=== PATIENT | male | born 1945 | race Caucasian/White ===

== ENCOUNTER 2016-06-20 16:38 | Observation (INO) | payer MEDICARE ==
--- NOTE | 2016-06-20 16:52 | ERNOTE ---
GI Bleeding/Rectal Pain ER Date of Service: 06/20/16 Presenting Symptoms: rectal bleeding Source: patient Exam Limitations: no limitations Allergies/Adverse Reactions: Allergies iodine Allergy (Verified 06/20/16 17:10) Home Medications: HOME MEDICATIONS Aspirin [Aspirin Chewable] 81 mg PO DAILY 06/20/16 [Last Taken Unknown] Lisinopril [Zestril] 20 mg PO DAILY 06/20/16 [Last Taken Unknown] Omeprazole 40 mg PO DAILY 06/20/16 [Last Taken Unknown] metFORMIN HCL [Glucophage] 1,000 mg PO BIDWM 06/20/16 [Last Taken Unknown] Narrative: Pt. comes in with c/o cramping and bloody stools x 4 today since 1pm. Pt. denies any recent illness but does note that he has been taking laxatives and stool softeners for constipation recently. Pt. denies any SOB, CP, nausea, vomiting, fever, but does state that he has been slightly dizzy. Pt. denies any alleviating or aggravating factors, denies any abdominal history, and denies any blood thinner medications. Review of Systems - Review of Systems Constitutional: Present: no symptoms reported. Absent: fever, chills, weakness , fatigue, malaise EYE: Present: no symptoms reported ENT: Present: no symptoms reported Respiratory: Present: no symptoms reported. Absent: shortness of breath, cough , wheezing Cardiology: Present: no symptoms reported. Absent: chest pain, palpitations, edema Gastrointestinal/Abdominal: Present: diarrhea - bloody. Absent: nausea, vomiting, constipation, abdominal pain Genitourinary: Present: no symptoms reported Musculoskeletal: Present: no symptoms reported. Absent: back pain, joint pain Skin: Present: no symptoms reported Neurological: Present: no symptoms reported. Absent: headache, dizziness/light- headedness, numbness, tingling All Other Systems: All systems neg except as marked Physical Exam - Physical Exam General Appearance: Present: wd/wn, alert, no apparent distress Eye Exam: Normal inspection: bilateral, PERRL: bilateral, EOMI: bilateral Ears, Nose, Throat: Present: normal ENT inspection, normal pharynx Neck: Present: normal inspection, nontender. Absent: lymphadenopathy (R), lymphadenopathy (L) Respiratory: Present: no respiratory distress, normal breath sounds, no accessory muscle use, chest nontender, lungs clear Cardiovascular/Chest: Present: no murmur, normal peripheral pulses, tachycardia Gastrointestinal/Abdominal: Present: normal bowel sounds, nondistended, soft, no organomegaly, tenderness - LLQ Rectal Exam: Present: normal rectal tone, normal prostate, blood-streaked stool , tenderness. Absent: hemorrhoids Back Exam: Present: normal inspection, normal range of motion, no CVA tenderness , no vertebral tenderness Extremity Exam: Present: normal inspection Neurological Exam: Present: alert, oriented, normal mood/affect, no motor/ sensory deficits Skin Exam: Present: warm/dry, pallor ED Progress - Date and Time Seen: Date and Time: 06/20/16 22:12 Discussed case with jt and chang pt. hgb stable and GI bleeding slowing down will admit for observation and non emergent colonoscopy. - Results and Orders Patient's Lab Results:: I have reviewed the patient's lab results. - Vital Signs Patient's Vital Signs:: I have reviewed the patient's vital signs. Vital Signs: Vital Signs 06/20/16 16:48 Temperature 36.2 C L Pulse Rate 139 H Respiratory 18 Rate Blood Pressure 155/86 O2 Sat by Pulse 98 Oximetry - EKG EKG: nonspecific ST T wave changes, other - Sinus tach EKG read: Reviewed by me EKG Comments: Interpreted by Dr Us - X-Ray X-Ray #1 X-Ray: abdomen Interpretation: Interp. by me X-ray Comments: Air fluid levels and prominent bowels RLQ stool retention L abd - CT/Ultrasound CT/Ultrasound Narrative: CT abdomen with B adrenal adenomas, no acute process - Progress/Reassessment Chief Complaint: GI Bleed Departure Clinical Impression: GI bleed Qualifiers: GI bleed type/associated pathology: unspecified gastrointestinal hemorrhage type Qualified Code(s): K92.2 - Gastrointestinal hemorrhage, unspecified - Departure Disposition: [facility] Condition: Fair Referrals: Gerald Major DO [Primary Care Provider] -
[2016-06-20 17:15] LABS: Hematocrit 40.8 % (42.0-52.0); Hemoglobin 13.8 gm/dL (13.5-18.0); Mean Cell Volume 92.7 fl (78-100); Mean Corpuscular Hemoglobin 31.4 pg (27-31); Mean Corpuscular Hgb Conc 33.8 g/dl (32-36); Mean Platelet Volume 9.9 fl (6.0-9.5); Neutrophil # 9.6 K/mm3 (1.3-6.0); Neutrophil % 71.1 % (42-75.0); Platelet Count 280 K/mm3 (150-450); Red Cell Distribution Width 12.3 % (11.5-14.0); White Blood Count 13.5 K/mm3 (4.0-10.5)
[2016-06-20] MEDS ORDERED: NORMAL SALINE 1,000 ML IV ONE ×2 (17:20→21:26)
[2016-06-20 17:30] LABS: Prothrombin Time (Patient) 10.1 Seconds (9.4-11.4)
[2016-06-20 17:31] LABS: INR 0.97 INR (0.90-1.10); Partial Thrombolplastin Time 27.1 Seconds (24-32)
[2016-06-20 17:32] LABS: Albumin * 3.4 gm/dl (3.4-5.0); Anion Gap 16.7 mmol/L (6.8-13.8); BUN/Creatinine Ratio 15.3 (9.0-21.6); Bilirubin, Total 0.3 mg/dL (0.0-1.1); Ca. Corrected For Albumin 9.2 mg/dL (8.4-10.2); Carbon Dioxide 25.4 mmol/L (24-32.6); Potassium 4.1 mmol/L (3.4-4.6); Total Protein 6.8 gm/dL (6.2-8.2)
--- OUTSIDE RECORDS SUMMARY | 2016-06-20 17:40 | XMS REPORT | Continuity of Care Document ---
:1945 Author Organization [facility] ([facility]) Address [place] [address] Phone [phone] Care Team Providers Name Role Phone Wiley Gunter Primary Care Provider [phone] Source Comments This disclosure is being made pursuant to the Care Everywhere program, applicable federal and state laws, and may not contain all informaitonavailable regarding this patient.[facility] ([facility]) Active Allergies and Adverse Reactions Allergen Noted Date Severity Reactions Comments Iodine 09/04/2010 NO REACTION Current Medications Prescription Sig. Disp. Refills Start Date End Date Status lisinopril 20 mg tablet Take 20 mg by Active mouth daily. omeprazole 20 mg extended Take 20 mg by Active release capsule mouth daily. aspirin 81 mg tablet Take 81 mg by Active mouth daily. Active Problems Not on file Social History Tobacco Use Types Packs/Day Years Used Date Current Some Day Smoker Smokeless Tobacco: Current User Chew Last Filed Vital Signs Vital Sign Reading Time Taken Blood Pressure 141/78 09/04/2010 8:14 AM CDT Pulse 61 09/04/2010 8:14 AM CDT Temperature 35.5 C (95.9 F) 09/04/2010 8:14 AM CDT Respiratory Rate - - Height 1.753 m (5' 9") 09/04/2010 8:14 AM CDT Weight 86.6 kg (190 lb 14.7 oz) 09/04/2010 8:14 AM CDT Body Mass Index 28.18 09/04/2010 8:14 AM CDT Oxygen Saturation - - Plan of Care Health Maintenance Due Date Last Done Comments HCV Screening 1945 Hepatitis B Vaccine (1 of 3 - Primary Series) 1945 Tdap Vaccine 11/29/1955 Lipid Disorder Screening 1962 Td Vaccine 1962 Colonoscopy 1994 Prostate Cancer Screening 1994 Zoster Vaccine 2004 Pneumococcal Vaccine (1 of 2 - PCV13) 2009 Influenza Vaccine: Seasonal (#1) 09/10/2015 Results from Last 3 Months Not on file
[2016-06-20] MEDS ORDERED: DIATRIZOATE MEGLU/DIATRIZO SOD 30 ML BTL PO ONE (18:08)
[2016-06-20 18:12] LABS: Urine Bilirubin Negative (NEGATIVE); Urine Ketone 5 mg/dL (NEGATIVE); Urine Nitrite Negative (NEGATIVE); Urine Protein 15 mg/dL (NEGATIVE); Urine Specific Gravity 1.025 SP.GR. (1.005-1.030); Urine Urobilinogen Normal (NORMAL)
[2016-06-20 18:26] LABS: Urine Blood 10 /ul (NEGATIVE)
[2016-06-20 18:27] LABS: Urine Appearance Clear; Urine Bacteria None Seen; Urine Color Yellow; Urine Hyaline Cast TRACE /LPF; Urine RBC TRACE /hpf (0-5); Urine WBC None Seen /hpf (0-5)
[2016-06-20] MEDS ORDERED: DIATRIZOATE MEGLU/DIATRIZO SOD 30 ML BTL ONE (18:52)
[2016-06-20 18:55] LABS: Hematocrit 35.3 % (42.0-52.0); Hemoglobin 12.1 gm/dL (13.5-18.0)
[2016-06-20 21:38] LABS: Hemoglobin 12.7 gm/dL (13.5-18.0)
--- OUTSIDE RECORDS SUMMARY | 2016-06-20 22:17 | XMS REPORT | Continuity of Care Document ---
:1945 Author Organization [facility] ([facility]) Address [place] [address] Phone [phone] Care Team Providers Name Role Phone Wiley Gunter Primary Care Provider [phone] Source Comments This disclosure is being made pursuant to the Care Everywhere program, applicable federal and state laws, and may not contain all informaitonavailable regarding this patient.[facility] ([facility]) Active Allergies and Adverse Reactions Allergen [...]
[2016-06-20] MEDS ORDERED: NORMAL SALINE 1,000 ML IV PRN (23:43)
--- NOTE | 2016-06-20 23:55 | HP ---
Chief Complaint - Chief Complaint Date of Service: 06/20/16 Time of Service: 23:40 Chief Complaint: bloody stool History of Present Illness: Pt is a 70 year old male pt of Dr. Major who presented to the ER with complaints of bright red bloody stool per rectum. Per pt from 3pm-7pm he had 6 bright red blood BM. PMH includes: GERD, HLD, HTN, and DM. Denies any dizziness , lightheadedness, CP, or SOB. No other associated symptoms are endorsed. He states that during the week last week he had abdominal pain and was constipated so took stool softeners on Thursday (06/18/16), on (06/19/16) and this morning he took a laxative. He states his last colonoscopy was in 1991 which did not reveal any abnormalities. Does take ASA 81mg PO daily,no other anticoagulants. In the ER his initial H/H was 13.8/40.8. Q2H checks were as followed: 12.1/35.3, 12.7/37. While in the ER he had one syncopal episode while up to the bathroom, BP was 52/29 which quickly resolved to SBP 130's. Pt received a total of 2L NS in ER. BP and H/H have remained stable. CT scan of abdomen revealed incidental findings of bilateral inguinal hernias, adrenal adenomas, and renal cyst, abdominal xray showed no acute abnormalities. Laboratory findings were as followed: WBC 13.5, Na+141, K+4.1, anion gap 16.7, INR 0.97, BUN/Creat 20/1.31. He will be admitted to the floor for observation, monitoring, and further testing with possible bleeding scan tomorrow depending on how he does overnight. - Patient's Past Medical History Patient History - Medical: Diabetes Type 2, GERD, Other Patient History - Cardiac/Respiratory: Hypertension, Hyperlipidemia Patient History - Cancer: No Hx of Cancer Patient History - Surgical Procedures: No surgical history, Colonoscopy - 1993 Patient History - Other: None - Family History Father Family History - Medical: History Unknown Family History - Cardiac/Respiratory: History Unknown Family History - Cancer: Lung Mother Family History - Medical: Family History - Cardiac/Respiratory: Coronary Heart Disease Family History - Cancer: No pertinent family hx Brother Family History - Medical: Diabetes Type 2 Sister Family History - Medical: Diabetes Type 2 - Social History Living Situations: alone Abuse History: No History of abuse Psych History: No pertinent hx Smoking Status: Current some day smoker Have you smoked in the past 12 months: Yes Do you dip or chew tobacco: No Patient requests Smoking Cessation Consult: No Initiate information on Smoking Cessation: No Alcohol Use: occasionally Drug Use: none - Immunizations Immunizations Up to Date: Yes Hx Pneumococcal Vaccination: Yes History of Influenza Vaccine: Yes Review Of Systems (GEN) - Review of Systems Generalized/Overall Review: Present: No Symptoms Reported EENTM: Present: No Symptoms Reported Respiratory: Present: No Symptoms Reported Cardiac: Present: No Symptoms Reported Abdominal: Present: Abdominal Pain, Diarrhea, Bright blood from rectum Genitourinary: Present: No Symptoms Reported Musculoskeletal: Present: No Symptoms Reported Neurological: Present: No Symptoms Reported Skin: Present: No Symptoms Reported Endocrine: Present: No Symptoms Reported Allergies/Adverse Reactions: Allergies Allergy/AdvReac Type Severity Reaction Status Date / Time iodine Allergy Verified 06/20/16 17:10 Home Medications: HOME MEDICATIONS Aspirin [Aspirin Chewable] 81 mg PO DAILY 06/20/16 [Last Taken Unknown] Lisinopril [Zestril] 20 mg PO DAILY 06/20/16 [Last Taken Unknown] Omeprazole 40 mg PO DAILY 06/20/16 [Last Taken Unknown] metFORMIN HCL [Glucophage] 1,000 mg PO BIDWM 06/20/16 [Last Taken Unknown] Exam - Exam Vital Signs: Vital Signs - Last Taken Temp 36.5 C 06/20/16 23:11 Pulse 91 06/20/16 23:11 Resp 16 06/20/16 23:11 BP 108/65 06/20/16 23:11 Pulse Ox 96 06/20/16 23:11 Constitutional: Present: Alert, Oriented x3, Cooperative, No distress ENT Exam: Present: normal ENT inspection Eye Exam: bilateral eye: normal inspection, PERRL Respiratory: Present: chest non-tender, lungs clear, normal breath sounds, no respiratory distress, no accessory muscle use Cardiovascular/Chest: Present: normal peripheral pulses, regular rate, rhythm, no chest tenderness, no edema, no gallop, no JVD, no murmur Peripheral Pulses: dorsalis-pedis (R): 2+, dorsalis-pedis (L): 2+, radial (R): 2 +, radial (L): 2+ Abdomen: Present: soft, nondistended, no rebound tenderness, tender - LLQ, hyperactive BS Extremity: Present: normal range of motion, non-tender, normal inspection Skin Exam: Present: normal color, warm/dry, no cyanosis Lymphatic: Present: no adenopathy Neurologic: Present: alert, normal mood/affect, oriented x 3 Appearance: Present: appropriate appearance, appropriate insight, neat, no memory impairment Eye contact: Present: cooperative, good eye contact, normal speech Thoughts: Present: normal thought pattern, no apparent hallucination Diagnostic Studies: Laboratory Results Laboratory Tests 06/20/16 06/20/1617 17:05 17:05 17:05 WBC 13.5 H RBC 4.40 L Hgb 13.8 Hct 40.8 L Plt Count 280 Immature Gran % (Auto) 0.90 H PT 10.1 INR (Anticoag Therapy) 0.97 PTT (Britta) 27.1 Sodium 141 Potassium 4.1 Anion Gap 16.7 H BUN 20 D Creatinine 1.31 Random Glucose 150 H Urine Color Urine Protein Urine Blood Urine Nitrate Ur Leukocyte Esterase Stool Occult Blood 06/20/16 06/20/16 17:12 18:07 WBC RBC Hgb Hct Plt Count Immature Gran % (Auto) PT INR (Anticoag Therapy) PTT ([place]) Sodium Potassium Anion Gap BUN Creatinine Random Glucose Urine Color Yellow Urine Protein 15 H Urine Blood 10 H Urine Nitrate Negative Ur Leukocyte Esterase Negative Stool Occult Blood Positive H Assessment/Plan - Assessment/Plan (1) GI bleed Assessment: Pt H/H and VS have remained stable. Given LLQ could be bleeding from diverticuli , although CT scan did not show evidence of this. Will keep pt NPO overnight, order serial H/H, monitor VS, and place on telemetry overnight. Dr. Workman consulted and will see pt in the morning. -C/S Dr. Workman -Q4H h/h -CBC/CMP in am -NPO -Q4H VS -possible bleeding scan if pt drops his hemaglobin Problem: Acute Qualifiers: GI bleed type/associated pathology: unspecified gastrointestinal hemorrhage type Qualified Code(s): K92.2 - Gastrointestinal hemorrhage, unspecified (2) Syncope Assessment: Pt with one episode of syncope in the ER while up to the bathroom. Likely a vasovagal event verses acute blood loss. Will place on telemetry, maintain bedrest, and continue to monitor VS and H/H overnight. -bedrest -serial H/H -VS Q6H -Telemetry Problem: Acute Qualifiers: Syncope type: vasovagal syncope Qualified Code(s): R55 - Syncope and collapse (3) Diabetes Assessment: Stable -NPO, accu checks Q6H -MIVF D5.45 @100ml/hr -depending on BG might need to add low dose SSI Problem: Chronic Qualifiers: Diabetes mellitus type: type 1 (4) HTN (hypertension) Assessment: Stable -Will hold lisinopril for now given syncopal episode, resume once BP stabilizes. Problem: Chronic
[2016-06-21] MEDS: DEXTROSE 5%-0.5 NORMAL SALINE 1,000 ML IV PRN ×2 (01:09→11:34)
[2016-06-21 01:55] LABS: Hematocrit 30.3 % (42.0-52.0); Hemoglobin 10.4 gm/dL (13.5-18.0)
[2016-06-21] MEDS ORDERED: PANTOPRAZOLE SODIUM 40 MG in NORMAL SALINE 100 ML IV SCH (04:00)
--- NOTE | 2016-06-21 04:24 | PN ---
Progess Note - Interim Narrative: 06/21/16 04:22 0200 H/H down from 12./37 to 10.4/30.3, s/p 2L boluses so likely dilution drop. 0330 Dr. Workman consulted for evaluation of LGIB. Maintain NPO status. VS stable. Will see pt in the morning.
[2016-06-21 06:04] LABS: Hematocrit 29.2 % (42.0-52.0); Hemoglobin 9.9 gm/dL (13.5-18.0); Mean Corpuscular Hemoglobin 31.5 pg (27-31); Mean Corpuscular Hgb Conc 33.9 g/dl (32-36); Mean Platelet Volume 9.8 fl (6.0-9.5); Neutrophil # 5.9 K/mm3 (1.3-6.0); Neutrophil % 63.1 % (42-75.0); Platelet Count 207 K/mm3 (150-450); Red Blood Count 3.14 M/mm3 (4.7-6.0); Red Cell Distribution Width 12.4 % (11.5-14.0); White Blood Count 9.4 K/mm3 (4.0-10.5)
[2016-06-21 06:17] LABS: Albumin * 2.8 gm/dl (3.4-5.0); BUN/Creatinine Ratio 16.8 (9.0-21.6); Bilirubin, Total 0.3 mg/dL (0.0-1.1); Ca. Corrected For Albumin 8.4 mg/dL (8.4-10.2); Calcium * 7.8 mg/dL (7.9-10.9); Carbon Dioxide 25.8 mmol/L (24-32.6); Potassium 3.8 mmol/L (3.4-4.6); Total Protein 5.5 gm/dL (6.2-8.2)
[2016-06-21] MEDS ORDERED: PANTOPRAZOLE SODIUM 40 MG TABLET.EC PO SCH (07:00)
[2016-06-21] MEDS ORDERED: SODIUM, POTASSIUM,MAG SULFATES 1 KIT KIT PO ONE (09:08)
[2016-06-21 09:54] LABS: Hematocrit 29.4 % (42.0-52.0); Hemoglobin 10.1 gm/dL (13.5-18.0)
--- NOTE | 2016-06-21 10:15 | CONS ---
[facility] - General Date of Service: 06/21/16 Source: patient, family, RN/, RN notes reviewed, old records Exam Limitations: no limitations - History of Present Illness Initial Comments: Last week he had not moved his bowels for 4-5 days so he took laxative pills on Thursday and . He had urgent bloody bowel movements--colored the water accompanied by lower abdominal cramping. His last blood was about 5Am and only a little bit. Abdominal xray showed increased gas. CT scan does not point to any identifiable source of bleeding. Hgb had fallen from 13.8 to 9.9 however althought he had a near syncopal episode in ER his VS have remained stable. Currently no abdominal pain although his abdomen is noisy. He had a w/u for bloating and GERD symptoms before. His heartburn was controlled with a daily med and he has reduced this to once a day and has no UGI symptoms. He usually moved his bowels 2-3 times a day before this episode and rarely gets constipated and never before "locked up" like this. He is not on an anticoalgulant Last colon exam in the early Allergies/Adverse Reactions: Allergies iodine Allergy (Verified 06/20/16 17:10) Home Medications: Home Medications Medication Instructions Recorded Last Taken Aspirin [Aspirin Chewable] 81 mg PO DAILY 06/20/16 Unknown Lisinopril [Zestril] 20 mg PO DAILY 06/20/16 Unknown Omeprazole 40 mg PO DAILY 06/20/16 Unknown metFORMIN HCL [Glucophage] 1,000 mg PO BIDWM 06/20/16 Unknown - Patient's Past Medical History Patient History - Medical: Diabetes Type 2, GERD, Other Patient History - Cardiac/Respiratory: Hypertension, Hyperlipidemia Patient History - Cancer: No Hx of Cancer Patient History - Surgical Procedures: No surgical history, Colonoscopy - 1993 Patient History - Other: None - Family History Father Family History - Medical: History Unknown Family History - Cardiac/Respiratory: History Unknown Family History - Cancer: Lung Mother Family History - Medical: Family History - Cardiac/Respiratory: Coronary Heart Disease Family History - Cancer: No pertinent family hx Brother Family History - Medical: Diabetes Type 2 Sister Family History - Medical: Diabetes Type 2 - Social History Living Situations: alone Abuse History: No History of abuse Psych History: No pertinent hx Smoking Status: Current some day smoker Have you smoked in the past 12 months: Yes Do you dip or chew tobacco: No Patient requests Smoking Cessation Consult: No Initiate information on Smoking Cessation: No Alcohol Use: occasionally Drug Use: none - Immunizations Immunizations Up to Date: Yes Hx Pneumococcal Vaccination: Yes History of Influenza Vaccine: Yes Medications - Medications Current Medications: Current Medications Dextrose/Sodium Chloride (Dextrose 5%-0.45%Ns) 1,000 mls @ 100 mls/hr IV .Q10H PRN PRN Reason: HYDRATION Stop: 07/20/16 23:53 Last Admin: 06/21/16 01:09 Dose: 100 mls/hr Pantoprazole Sodium 40 mg/ (Sodium Chloride) 100 mls @ 400 mls/hr IV Q24H BETTYE Stop: 07/21/16 04:01 Last Infusion: 06/21/16 06:00 Dose: Infused Review of Systems - Review of Systems EENTM: Present: No Symptoms Reported Respiratory: Absent: Shortness of Breath Cardiac: Absent: Chest Pain Abdominal: Present: Bright blood from rectum Genitourinary: Present: No Symptoms Reported Musculoskeletal: Present: No Symptoms Reported Neurological: Present: No Symptoms Reported Skin: Present: No Symptoms Reported Physical Examination - Exam Vital Signs: Vital Signs - Last Taken Temp 36.8 C 06/21/16 09:47 Pulse 78 06/21/16 09:47 Resp 18 06/21/16 09:47 BP 132/58 06/21/16 09:47 Pulse Ox 98 06/21/16 09:47 O2 Oxygen Delivery Method Room Air Constitutional: Present: Alert, Oriented x3, Cooperative, No distress ENT Exam: Present: normal ENT inspection Eye Exam: bilateral eye: normal inspection Neck: Present: normal inspection Respiratory: Present: no respiratory distress Cardiovascular/Chest: Present: regular rate, rhythm Abdomen: Present: soft - denies pain or tenderness, slightly protuberant /Rectal: Present: Exam deferred Extremity: Present: normal inspection Skin Exam: Present: normal color Neurologic: Present: wholesale buyer II-XII nml as tested, no motor/sensory deficits Appearance: Present: appropriate appearance, appropriate insight, neat Eye contact: Present: cooperative, good eye contact, normal speech Thoughts: Present: normal thought pattern - Results and Findings: Lab/Microbiology results last 24 hrs: Abnormal/Pending Laboratory Last 24 HRS 06/21/16 06/21/16 06/21/16 05:55 05:55 01:57 RBC 3.14 L Hgb 9.9 L 10.4 L Hct 29.2 L 30.3 L MCH 31.5 H MPV 9.8 H Immature Gran % (Auto) 0.90 H Immature Gran # (Auto) 0.08 H Chloride 107 H Random Glucose 122 H Calcium 7.8 L ALT 12 L Alkaline Phosphatase 39 L Total Protein 5.5 L Albumin 2.8 L - Assessments/Findings (1) GI bleed Diagnosis(s): Most likely lower GI and associated with recent episode of constipation. Although Hgb has fallen, he is hemodynamically stable and some of that decrease is due to hydration. Pamphlets on colon screening and colonoscopy reviewed and given to him. After an interactive discussion his questions were answered to his apparent satisfaction and he has given informed consent for colonoscopy. Will administer a Suprep bottle and plan on colonoscopy later today. Problem: Acute Qualifiers: GI bleed type/associated pathology: unspecified gastrointestinal hemorrhage type Qualified Code(s): K92.2 - Gastrointestinal hemorrhage, unspecified
[2016-06-21] MEDS ORDERED: DEXTROSE 5%-0.5 NORMAL SALINE 1,000 ML IV ONE (12:10)
[2016-06-21] MEDS ORDERED: RINGERS SOLUTION,LACTATED 1,000 ML IV ONE (12:46)
--- NOTE | 2016-06-21 13:30 | OR ---
Operative Report - Dictated Report Narrative: OPERATIVE REPORT DATE OF OPERATION: 06/21/2016 PREOPERATIVE DIAGNOSIS: GI bleeding POSTOPERATIVE DIAGNOSIS: Diverticulosis. No active bleeding OPERATION: Colonoscopy SURGEON: Sourav Workman MD ANESTHESIA: AMINATA Diaz CRNA INDICATIONS FOR PROCEDURE: The patient is a 70-year-old male who presented with painless bright red blood per rectum after an episode of constipation. His last colon study was a colonoscopy in the . FINDINGS: Diverticulosis otherwise normal colonoscopy to cecum. Specifically no active bleeding site seen NARRATIVE OF PROCEDURE: The patient was identified in the holding area, and prior to the administration of anesthetic, a multidisciplinary timeout was observed. With the patient in the left lateral position and after the administration of intravenous sedation, the perineum was inspected. There was no evidence of pilonidal disease or skin breakdown. The external appearance of the anus was normal. Sphincter tone was good. The flexible fiberoptic colonoscope was inserted into the rectum which was insufflated with air. The rectal mucosa and submucosal vascular pattern appeared normal, the prep was seen to be complete. The scope was advanced through the sigmoid colon, which was tortuous and contained several large non-impacted noninflamed diverticular openings. The scope was advanced up the descending colon, and around the splenic flexure where the triangular haustral architecture of the transverse colon was seen. The scope was advanced across the transverse colon, around the hepatic flexure to the cecum, where the confluence of tenia and the ileocecal valve were identified. The mucosa at this level appeared normal. The scope was then slowly withdrawn in a circular fashion so that all aspects of colonic mucosa were inspected. The colon was capacious and somewhat redundant, requiring the use of standard reduction maneuvers and gentle external manual compression on the abdomen to reach the cecum. The haustral architecture appeared well preserved throughout with no evidence of external compression. The mucosa and submucosal vascular pattern appeared normal, specifically there was no gross evidence to suggest colitis or inflammatory bowel disease and no AV malformations were seen. No polyps were encountered. The scope was gradually withdrawn to the level of the rectum. As much insufflated air as possible was removed. The scope was withdrawn from the patient and the procedure terminated. The patient tolerated the anesthetic and procedure well without complication and was transferred back to the floor awake and in stable condition. RECOMMENDATION: The patient may be fed. Suggest a high fiber diet for diverticulosis. He should undergo colon surveillance in 10 years depending upon findings and symptoms Reviewed and electronically signed
[2016-06-21 13:44] LABS: Hematocrit 28.2 % (42.0-52.0); Hemoglobin 9.5 gm/dL (13.5-18.0)
[2016-06-21 15:04] VITALS: BP 120/56
--- NOTE | 2016-06-21 15:16 | DS ---
(1) LGI bleed Problem: Acute (2) Syncope Problem: Acute Qualifiers: Syncope type: vasovagal syncope Qualified Code(s): R55 - Syncope and collapse (3) Diabetes Problem: Chronic Qualifiers: Diabetes mellitus type: type 2 Diabetes mellitus complication status: without complication (4) HTN (hypertension) Problem: Chronic Qualifiers: Hypertension type: essential hypertension Qualified Code(s): I10 - Essential (primary) hypertension Description of Stay: DATE OF ADMISSION: 06/20/2016. DATE OF DISCHARGE: 06/21/2016. DIAGNOSTICS: CT ABDOMEN/PELVIS W/; 06/20/2016. DISCHARGE SUMMARY: Randolph Fletcher is a 70-year-old WM with a history of HTN, HLD, T2 DM, GERD who came to the ER for evaluation of several episodes of BRBPR after using a laxative and mild abdominal discomfort. His last colonoscopy was in the mid . Patient underwent a CT of the abdomen and pelvis w/. This did not show any acute intra-abdominal or pelvic findings. There was a drop in his H&H 13.8/40.8 to 9.5/28.2 the next day; some of this could be dilutional. He did undergo a colonoscopy by Dr. Workman [general surgeon on consult] which showed evidence of diverticulosis but no acute bleeding. The patient was fed and discharged in a stable condition with a follow-up appt. with his PCP in 7-10 days. Procedures Performed: see notes below - colonoscopy [ ] List Procedures: OPERATIVE REPORT: DATE OF OPERATION: 06/21/2016 PREOPERATIVE DIAGNOSIS: GI bleeding POSTOPERATIVE DIAGNOSIS: Diverticulosis. No active bleeding OPERATION: Colonoscopy SURGEON: Sourav Workman MD ANESTHESIA: AMINATA Diaz CRNA INDICATIONS FOR PROCEDURE: The patient is a 70-year-old male who presented with painless bright red blood per rectum after an episode of constipation. His last colon study was a colonoscopy in the . FINDINGS: Diverticulosis otherwise normal colonoscopy to cecum. Specifically no active bleeding site seen NARRATIVE OF PROCEDURE: The patient was identified in the holding area, and prior to the administration of anesthetic, a multidisciplinary timeout was observed. With the patient in the left lateral position and after the administration of intravenous sedation, the perineum was inspected. There was no evidence of pilonidal disease or skin breakdown. The external appearance of the anus was normal. Sphincter tone was good. The flexible fiberoptic colonoscope was inserted into the rectum which was insufflated with air. The rectal mucosa and submucosal vascular pattern appeared normal, the prep was seen to be complete. The scope was advanced through the sigmoid colon, which was tortuous and contained several large non-impacted noninflamed diverticular openings. The scope was advanced up the descending colon, and around the splenic flexure where the triangular haustral architecture of the transverse colon was seen. The scope was advanced across the transverse colon, around the hepatic flexure to the cecum, where the confluence of tenia and the ileocecal valve were identified. The mucosa at this level appeared normal. The scope was then slowly withdrawn in a circular fashion so that all aspects of colonic mucosa were inspected. The colon was capacious and somewhat redundant, requiring the use of standard reduction maneuvers and gentle external manual compression on the abdomen to reach the cecum. The haustral architecture appeared well preserved throughout with no evidence of external compression. The mucosa and submucosal vascular pattern appeared normal, specifically there was no gross evidence to suggest colitis or inflammatory bowel disease and no AV malformations were seen. No polyps were encountered. The scope was gradually withdrawn to the level of the rectum. As much insufflated air as possible was removed. The scope was withdrawn from the patient and the procedure terminated. The patient tolerated the anesthetic and procedure well without complication and was transferred back to the floor awake and in stable condition. RECOMMENDATION: The patient may be fed. Suggest a high fiber diet for diverticulosis. He should undergo colon surveillance in 10 years depending upon findings and symptoms. Results and Findings: Laboratory Tests 06/20/16 06/20/16 06/21/16 06/21/16 17:05 21:35 05:55 09:50 Hgb 13.8 12.7 L 9.9 L 10.1 Hct 40.8 L 37.0 L 29.2 L 29.4 06/20/16 17:05 PT 10.1 INR (Anticoag Therapy) 0.97 PTT (Britta) 27.1 06/20/16 06/21/16 17:05 05:55 Plasma Sodium 142 141 Potassium 4.1 3.8 Chloride 103 107 H Carbon Dioxide 25.4 25.8 BUN 20 D 16 Creatinine 1.31 0.95 Est GFR (Non-Af Amer) 57 L D 83 D Random Glucose 150 H 122 H Calcium Adj for Albumin 9.2 8.4 AST 15 12 ALT 18 L 12 L Alkaline Phosphatase 54 39 L Total Protein 6.8 5.5 L Albumin 3.4 2.8 L Discharge Disposition: Home self care Disposition: Home self-care Condition: Fair Discharge Activity: Activity as tolerated Discharge Diet: Consistent carbs, Low fat/chol, High Fiber Referrals: Gerald Major DO [Primary Care Provider] - Problem Oriented Discharge Instructions to Patient/Family: High-Fiber Diet, Diverticulitis, [id number], Colonoscopy, Care After, Lddl-[id number], Gastrointestinal Bleeding, [id number] Additional Patient Instructions (free text): appt with PCP in 7-10 days. NO NSAIDS, EtOh, full dose ASA. vitamin D3 2000 units PO daily [ OTC med for overall health]. take lisinopril 20 mg PO at bedtime. Complete Home Medications List: Complete Home Medication List: Aspirin [Aspirin Chewable] 81 mg PO DAILY 06/20/16 Lisinopril [Zestril] 20 mg PO DAILY 06/20/16 Omeprazole 40 mg PO DAILY 06/20/16 metFORMIN HCL [Glucophage] 1,000 mg PO BIDWM 06/20/16
[2016-06-27 22:37] LABS: C.dificile Culture NOT ISOLATED
== END 2016-06-21 16:11 | disposition home or self-care (01) ==
LOC: ER 16:38 → MS 22:12
PROVIDERS: ADMIT Nurse Practitioner Gerontology; ATTEND Internal Medicine
PROC: 0DJD8ZZ Inspection of Lower Intestinal Tract, Via Natural or Artificial Opening Endoscopic (ICD-10-PCS; principal; 2016-06-21 11:39)
DX: K92.1 Melena (principal); R55 Syncope and collapse; I10 Essential (primary) hypertension; K57.30 Diverticulosis of large intestine without perforation or abscess without bleeding; Z72.0 Tobacco use; K21.9 Gastro-esophageal reflux disease without esophagitis; E78.5 Hyperlipidemia, unspecified; E11.9 Type 2 diabetes mellitus without complications
CPT/HCPCS: 36415; 45378; 74020; 74177; 80053; 81001; 82272; 85014; 85018; 85025; 85610; 85730; 86850; 86900; 87081; 87177; 87209; 93005; 96365; 99283; G0378

== ENCOUNTER 2016-06-26 21:11 | Emergency (ER) | payer MEDICARE ==
--- OUTSIDE RECORDS SUMMARY | 2016-06-26 21:51 | XMS REPORT | Continuity of Care Document ---
:1945 Author Organization [facility] ([facility]) Address [place] [address] Phone [phone] Care Team Providers Name Role Phone Wiley Gunter Primary Care Provider [phone] Source Comments This disclosure is being made pursuant to the Care Everywhere program, applicable federal and state laws, and may not contain all informaitonavailable regarding this patient.[facility] ([facility]) Active Allergies and Adverse Reactions Allergen [...]
--- NOTE | 2016-06-26 21:52 | ERNOTE ---
GI Bleeding/Rectal Pain ER Presenting Symptoms: rectal bleeding Time Seen by Provider: 06/26/16 21:45 Source: patient, family Exam Limitations: no limitations Immunizations: IMMUNIZATION HX Immunizations Up to Date Yes History of Influenza Vaccine Yes Hx Pneumococcal Vaccination Yes Allergies/Adverse Reactions: Allergies iodine Allergy (Verified 06/20/16 17:10) Home Medications: HOME MEDICATIONS Aspirin [Aspirin Chewable] 81 mg PO DAILY 06/20/16 [Last Taken Unknown] Lisinopril [Zestril] 20 mg PO DAILY 06/20/16 [Last Taken Unknown] Omeprazole 40 mg PO DAILY 06/20/16 [Last Taken Unknown] metFORMIN HCL [Glucophage] 1,000 mg PO BIDWM 06/20/16 [Last Taken Unknown] Narrative: Pt had a colonoscopy for GI bleeding yesterday. Pt began to have BRB per rectum again today. Upon arrival in the ED he had further BRB per rectum with clots. he then had a syncopal episode. Timing: getting worse Quality/Severity: Present: moderate Rectal Bleeding: Present: blood mixed with stool - + clots Review of Systems - Review of Systems Constitutional: Absent: recent illness, fever, chills EYE: Present: no symptoms reported ENT: Present: no symptoms reported Respiratory: Present: shortness of breath. Absent: cough Cardiology: Present: syncope. Absent: chest pain, palpitations Gastrointestinal/Abdominal: Present: See HPI Genitourinary: Present: no symptoms reported Musculoskeletal: Present: no symptoms reported Skin: Present: no symptoms reported Neurological: Present: no symptoms reported Endocrine: Present: no symptoms reported Hematologic/Lymphatic: Present: no symptoms reported Psych: Present: no symptoms reported - Patient's Past Medical History Patient History - Medical: Diabetes Type 2, GERD, Other - Diverticulosis Patient History - Cardiac/Respiratory: Hypertension, Hyperlipidemia Patient History - Cancer: No Hx of Cancer Patient History - Surgical Procedures: No surgical history, Colonoscopy - 1993 and 06/21/16 Patient History - Other: None - Family History Father Family History - Medical: History Unknown Family History - Cardiac/Respiratory: History Unknown Family History - Cancer: Lung Mother Family History - Medical: Family History - Cardiac/Respiratory: Coronary Heart Disease Family History - Cancer: No pertinent family hx Brother Family History - Medical: Diabetes Type 2 Sister Family History - Medical: Diabetes Type 2 - Social History Living Situations: alone Abuse History: No History of abuse Psych History: No pertinent hx Alcohol Use: occasionally Drug Use: none - Immunizations Immunizations Up to Date: Yes Hx Pneumococcal Vaccination: Yes History of Influenza Vaccine: Yes Physical Exam - Physical Exam General Appearance: Present: wd/wn, alert, no apparent distress Eye Exam: Normal inspection: bilateral Ears, Nose, Throat: Present: normal ENT inspection Neck: Present: normal inspection, nontender Respiratory: Present: no respiratory distress, normal breath sounds, no accessory muscle use, lungs clear Cardiovascular/Chest: Present: regular rate, rhythm, no murmur Gastrointestinal/Abdominal: Present: nontender, nondistended, soft Back Exam: Present: normal inspection, normal range of motion ED Progress - Results and Orders Patient's Lab Results:: I have reviewed the patient's lab results. Results and Orders: Laboratory Tests 06/26/16 06/26/16 21:40 21:40 WBC 18.6 H Hgb 8.7 L Hct 25.8 L Plt Count 342 Sodium 139 Potassium 3.3 L Chloride 104 Carbon Dioxide 22.8 L Anion Gap 15.5 H BUN 9 Creatinine 1.27 Est GFR (Non-Af Amer) 59 L D BUN/Creatinine Ratio 7.1 L Random Glucose 221 H Calcium 8.5 Total Bilirubin 0.2 AST 17 ALT 14 L Alkaline Phosphatase 47 L Total Protein 6.4 Albumin 3.4 - Vital Signs Patient's Vital Signs:: I have reviewed the patient's vital signs. Vital Signs: Vital Signs 06/26/16 21:25 Temperature 35.6 C L Pulse Rate 103 H Respiratory 18 Rate Blood Pressure 128/65 O2 Sat by Pulse 96 Oximetry - X-Ray X-Ray #1 X-Ray: abdomen Interpretation: Interp. by me X-ray Comments: No free air or obstruction, non-specific gas pattern - Progress/Reassessment Chief Complaint: GI Bleed Progress:: Unchanged Progress Note-Subjective: 06/27/16 00:30 Spoke with Kassie JAIMES hospitalist, she was unsure if we should keep the patient and spoke with Dr. Melara, Surgeon communications technologist. He felt that since we were unable to find the bleeding source last time that he should go to a higher level of care that has GI and interventional radiology. [facility] was contacted. Spoke with Dr. Elliot Marmolejo in the ER. He agrees to accept the patient. Departure Clinical Impression: GI bleed Qualifiers: GI bleed type/associated pathology: diverticulosis Qualified Code(s): K57.91 - Diverticulosis of intestine, part unspecified, without perforation or abscess with bleeding Syncope Qualifiers: Syncope type: vasovagal syncope Qualified Code(s): R55 - Syncope and collapse - Departure Disposition: [facility] Condition: Fair Referrals: Gerald Major DO [Primary Care Provider] -
[2016-06-26 21:54] LABS: Hematocrit 25.8 % (42.0-52.0); Hemoglobin 8.7 gm/dL (13.5-18.0); Mean Cell Volume 93.8 fl (78-100); Mean Corpuscular Hemoglobin 31.6 pg (27-31); Mean Corpuscular Hgb Conc 33.7 g/dl (32-36); Mean Platelet Volume 9.6 fl (6.0-9.5); Neutrophil # 12.6 K/mm3 (1.3-6.0); Platelet Count 342 K/mm3 (150-450); Red Blood Count 2.75 M/mm3 (4.7-6.0); Red Cell Distribution Width 12.7 % (11.5-14.0); White Blood Count 18.6 K/mm3 (4.0-10.5)
[2016-06-26] MEDS ORDERED: NORMAL SALINE 1,000 ML IV ONE (21:59)
[2016-06-26 22:08] LABS: Albumin * 3.4 gm/dl (3.4-5.0); Anion Gap 15.5 mmol/L (6.8-13.8); BUN/Creatinine Ratio 7.1 (9.0-21.6); Bilirubin, Total 0.2 mg/dL (0.0-1.1); Ca. Corrected For Albumin 8.7 mg/dL (8.4-10.2); Calcium * 8.5 mg/dL (7.9-10.9); Carbon Dioxide 22.8 mmol/L (24-32.6); Potassium 3.3 mmol/L (3.4-4.6); Total Protein 6.4 gm/dL (6.2-8.2)
[2016-06-27 01:12] VITALS: BP 125/59
== END 2016-06-27 01:30 | disposition short-term general hospital (02) ==
LOC: ER 21:11
DX: K57.91 Diverticulosis of intestine, part unspecified, without perforation or abscess with bleeding (principal); R55 Syncope and collapse; E11.9 Type 2 diabetes mellitus without complications; I10 Essential (primary) hypertension